=== PATIENT | male | born 1990 | race Caucasian/White ===

== ENCOUNTER 2021-07-21 | Outpatient (REF) | payer OTHER, SELFPAY | END 2021-07-21 00:01 | disposition home or self-care (01) | LOC: HO.LAB | PROVIDERS: Visit Provider Internal Medicine | DX: Z13.89 Encounter for screening for other disorder (principal) | CPT/HCPCS: C9803; U0003; U0005 ==

== ENCOUNTER 2021-08-05 | Outpatient (REF) | payer OTHER, SELFPAY | END 2021-08-05 00:01 | disposition home or self-care (01) | LOC: HO.LAB | PROVIDERS: Visit Provider Internal Medicine | DX: Z13.89 Encounter for screening for other disorder (principal) | CPT/HCPCS: C9803 ==